=== PATIENT | male | born 1995 | race Hispanic/Latino ===

== ENCOUNTER 2018-04-16 21:50 | Emergency (ER) | payer SELFPAY ==
[2018-04-16] MEDS ORDERED: DEXAMETHASONE SOD PHOSPHATE 10MG/ML 1ML VIAL ONE (22:26)
[2018-04-16] MEDS ORDERED: KETOROLAC TROMETHAMINE 30MG/ML ONE (22:27)
== END 2018-04-16 22:38 | disposition home or self-care (01) ==
LOC: EDH 21:50
DX: J11.1 Influenza due to unidentified influenza virus with other respiratory manifestations (principal); Z98.890 Other specified postprocedural states
CPT/HCPCS: 96372 ×2; 99284; J1100; J1885

== ENCOUNTER 2018-04-17 08:20 | Emergency (ER) | payer OTHER | END 2018-04-17 09:18 | disposition home or self-care (01) | LOC: EDH 08:20 | DX: J11.1 Influenza due to unidentified influenza virus with other respiratory manifestations (principal); R53.1 Weakness; Z87.891 Personal history of nicotine dependence | CPT/HCPCS: 99281 ==